=== PATIENT | female | born 1980 | race Caucasian/White ===

== ENCOUNTER → 2017-10-25 | Outpatient (CLI) | payer OTHER | LOC: COL.RAD 07:20 | DX: G43.009 Migraine without aura, not intractable, without status migrainosus (principal); Z86.018 Personal history of other benign neoplasm | CPT/HCPCS: A9585 ==

== ENCOUNTER → 2022-10-25 | Outpatient (CLI) | payer OTHER ==
[~2022-10-25] MED LIST: DIFLUCAN150 MG PO; HEATHER0.35 MG PO; METROGEL-VAGINA0.75% VG; NURTEC ODT75 MG PO
== END ==
LOC: MC.RAD 06:58
DX: Z12.31 Encounter for screening mammogram for malignant neoplasm of breast (principal)

== ENCOUNTER → 2023-12-11 | Outpatient (CLI) | payer OTHER | LOC: MC.RAD 07:45 | DX: Z12.31 Encounter for screening mammogram for malignant neoplasm of breast (principal) ==